=== PATIENT | male | born 1970 | race African-American/Black ===

== ENCOUNTER 2022-01-03 00:33 | Observation (INO) | payer OTHER ==
[2022-01-03 02:13] LABS: BASO % 0.5 % (0-2.0); EOS % 3.9 % (0-4.5); HEMATOCRIT 38.7 % (35.4-49); HEMOGLOBIN 12.9 GM/dL (11.7-16.9); LYMPH % 23.8 % (8-40); MCH 27.6 pg (25.7-33.7); MCHC 33.4 g/dl (32.0-35.9); MEAN CELL VOLUME 82.7 fl (80-96); MEAN PLT VOLUME 8.3 fl (7.5-11.1); MONO % 12.6 % (3.8-10.2); NEUT % 59.2 % (42.8-82.8); PLATELET COUNT 225 10^3/uL (134-434); RBC 4.68 M/mm3 (4.00-5.60); RDW 14.2 % (11.9-15.9); WHITE BLOOD COUNT 6.6 K/mm3 (4.0-10.0)
[2022-01-03 02:22] LABS: INR 1.02 (0.83-1.09); PROTHROMBIN TIME (PATIENT) 11.7 SEC (9.7-13.0)
[2022-01-03 02:33] LABS: ALBUMIN 3.5 g/dl (3.4-5.0); CALCIUM 8.7 mg/dL (8.5-10.1)
[2022-01-03 02:37] LABS: CREATININE 1.1 mg/dL (0.55-1.3)
[2022-01-03 02:38] LABS: BILIRUBIN,TOTAL 0.5 mg/dL (0.2-1); TOT PROT 6.9 g/dl (6.4-8.2)
[2022-01-03 02:42] LABS: N-TERMINAL BNP 5.9 pg/ml (5-125)
[2022-01-03] MEDS ORDERED: POTASSIUM CHLORIDE TABS 20 MEQ TABLET.ER (FP) PO ONE (02:42)
[2022-01-03] MEDS ORDERED: POTASSIUM CHLORIDE ORAL LIQUID 20 MEQ/15 ML ONE (03:45)
[2022-01-03 15:04] VITALS: BMI 37.5
[2022-01-03 17:42] LABS: MAGNESIUM 2.1 mg/dL (1.8-2.4)
[2022-01-03] MEDS ORDERED: ACETAMINOPHEN 325 MG TABLET (FP) PO PRN (18:41)
[2022-01-04 08:11] LABS: CALCIUM 8.7 mg/dL (8.5-10.1)
[2022-01-04 08:13] LABS: ALBUMIN 3.4 g/dl (3.4-5.0); BLOOD UREA NITROGEN 16.8 mg/dL (7-18)
[2022-01-04 08:17] LABS: BILIRUBIN,TOTAL 0.6 mg/dL (0.2-1); TOT PROT 6.8 g/dl (6.4-8.2)
[2022-01-04 14:57] VITALS: BP 131/76; PULSE 66; RESP 18; TEMP 98.2
== END 2022-01-04 17:15 | disposition home or self-care (01) ==
LOC: JER 00:33 → JERBED 05:41 → J4W 14:11
PROVIDERS: ADMIT Internal Medicine; ATTEND Internal Medicine
DX: R06.09 Other forms of dyspnea (principal); R06.02 Shortness of breath; I10 Essential (primary) hypertension; I25.2 Old myocardial infarction; E78.5 Hyperlipidemia, unspecified; E66.01 Morbid (severe) obesity due to excess calories; Z68.37 Body mass index [BMI] 37.0-37.9, adult; Z79.82 Long term (current) use of aspirin
CPT/HCPCS: 0241U-QW; 36415; 71045-TC-FY; 78452-TC; 80053; 80061; 83036; 83735; 83880; 84100; 84443; 84484; 85025; 85610; 85730; 86850; 86900; 86901; 93005; 93010; 93017; 93306-TC; 99285-25; A9502; G0378